=== PATIENT | female | born 1995 | race Caucasian/White ===

== ENCOUNTER 2017-04-11 15:08 | Emergency (ER) | payer OTHER ==
[~2017-04-11] VITALS: Ht 172.7 cm; Wt 93.0 kg
[2017-04-11 15:10] VITALS: BP 131/83
--- NOTE | 2017-04-11 15:26 | ED SKIN/ALLERGY COMPLAINT ---
History of Present Illness General Chief Complaint: Skin Rash/ Abcess Stated Complaint: ?VAGINAL ABCESS Source: patient, family, old records Exam Limitations: no limitations Vital Signs & Intake/Output Vital Signs & Intake/Output Vital Signs Date Time Temp Pulse Resp B/P B/P Pulse O2 O2 Flow FiO2 Mean Ox Delivery Rate 04/11 1611 Room Air Room Air 04/11 1510 99.0 104 20 131/83 100 Room Air Allergies Coded Allergies: No Known Allergies (04/11/17) Reconcile Medications Amoxicillin 500 MG TABLET 1 TAB PO TID ABSCESS Butalb/Acetaminophen/Caffeine (Fioricet 50-300-40 MG Capsule) 50 MG-300 MG-40 MG CAPSULE 1 TAB PO Q6HR PRN HEADACHE Sulfamethoxazole/Trimethoprim (Bactrim Ds Tablet) 800 MG-160 MG TABLET 1 TAB PO BID ABSCESS Triage Note: PT TO ED C/O VAGINAL ABSCESS. NOTICED YESTERDAY, WORSE TODAY. STATES ALMOST SIZE OF GOLFBALL. Triage Nurses Notes Reviewed? yes Onset: Abrupt Duration: day(s): (2), constant Timing: recent history Severity: moderate Severity Numbers: 6 Location: genitalia Possible Factors: no cause identified No Modifying Factors: none Associated Symptoms: MIGRAINE HEADACHE : No Patient currently breastfeeds: No HPI: 21-year-old female presents with family for evaluation complaining of a 2 day history of a progressively worsening painful moderate aching nonradiating lump to her vagina. She denies history of similar symptoms in the past. She denies any urinary complaints no dysuria urgency frequency hematuria. Her last menstrual cycle was March 30 and normal per the patient. She denies any abnormal bleeding or discharge since the symptoms began. She states that the pain has caused her to have a migraine headache, she is not taken anything for it. No fever no chills abdominal pain nausea vomiting or diarrhea. she denies chance of (DOMINGA RODRIGUEZ) Past History Travel History Traveled to [place] past 21 day No Medical History Any Pertinent Medical History? none Surgical History Surgical History: none Psychosocial History What is your primary language Kazakh Tobacco Use: Never used ETOH Use: denies use Illicit Drug Use: denies illicit drug use Family History Hx Contributory? No (DOMINGA RODRIGUEZ) Review of Systems Review of Systems Constitutional: Reports: no symptoms, see HPI. All Other Systems: Reviewed and Negative Comments Review of systems: See HPI, All other systems negative. Constitutional, no chills no fever, no malaise HEENT: no sore throat no congestion, no ear pain Cardiovascular: No chest pain , no palpitation Skin: see hpi Respiratory: No dyspnea no cough no sputum no hemoptysis GI: No nausea no vomiting, no diarrhea : No dysuria No hematuria, no frequency, no discharge Muscle skeletal: No joint pain, no back pain, no neck pain, Neurologic: headache Psych: No stress no depression,. Heme/endocrine: No bruising no bleeding Immunology: No lymphadenopathy (DOMINGA RODRIGUEZ) Physical Exam Physical Exam General Appearance: well developed/nourished, alert, awake Comments: Well-developed well-nourished patient in no apparent distress. HEENT: Atraumatic, extraocular motion intact Neck: Supple, FROM Back: FROM Respiratory: No respiratory distress. Patient speaking in full complete sentences. Breath sounds clear to auscultation bilaterally: NO W/R/R Female : Left lower Bartholin's gland abscess mild erythema indurated no fluctuants no discharge elicited NNo lesions/discharge or bleeding. Extremities: full range of motion Neuro: awake, alert, and oriented to person, place and time. There were no obvious focal neurologic abnormalities. Skin: Warm & dry;No appreciable rash on exposed skin Psych: Mood affect normal, normal memory normal judgment. (DOMINGA RODRIGUEZ) Progress Differential Diagnosis: abscess/cellulitis, shingles, BARTHOLIN GLAND ABSCESS, HERPES, FOLLICULITIS Plan of Care: Orders Procedure Date/time Status URINE 04/11 1543 Complete URINALYSIS 04/11 1543 Complete Laboratory Tests 04/11/17 1545: Urine Color YEL, Urine Clarity CLEAR, Urine pH 6.0, Ur Specific [place] 1.015, Urine Protein NEG, Urine Ketones NEG, Urine Nitrite NEG, Urine Bilirubin NEG, Urine Urobilinogen 0.2, Ur Leukocyte Esterase NEG, Ur Microscopic EXAM NOT REQUIRED, Urine Hemoglobin NEG, Urine Glucose NEG, Urine Test NEGATIVE Discussed with the patient physical exam I discussed with her do not believe there is anything to warrant incision and drainage at this time however patient requires antibiotics, espon salt baths, f/u with [employer] or return in 48-72 hrs for wound check. I answered all her questions they feel comfortable with this plan cleared for discharge (DOMINGA RODRIGUEZ) Departure Departure Time of Disposition: 1555 Disposition: HOME OR SELF CARE Condition: Stable Clinical Impression Primary Impression: Bartholin's gland abscess Secondary Impressions: Migraine Referrals: GELA FLORES,ALEXANDRO HUYNH (PCP/Family) Additional Instructions: follow up with your [employer], return in 2-3 days for wound check. amoxicllin, bactrim as directed. fioricet for your headache. ibuprofen 800mg every 8 hours. epson salt baths as discussed. As discussed you have a developing abscess, that does not appear ready to be lanced today. Return immediately at anytime sooner prior if your symtpoms worsen : worsening pain, fever, chills, discharge or any other concerns. these prescriptions were sent to [facility] Departure Forms: Customer Survey General Discharge Information Prescriptions: Current Visit Scripts Butalb/Acetaminophen/Caffeine (Fioricet 50-300-40 MG Capsule) 1 TAB PO Q6HR PRN HEADACHE #12 TAB Amoxicillin 1 TAB PO TID #21 TAB Sulfamethoxazole/Trimethoprim (Bactrim Ds Tablet) 1 TAB PO BID #14 TAB (DOMINGA RODRIGUEZ) PA/[employer]BR[employer] DERIVATIVES TRADER Co-Sign Statement Statement: ED Attending supervision documentation- [] I saw and evaluated the patient. I have also reviewed all the pertinent lab results and diagnostic results. I agree with the findings and the plan of care as documented in the PA's/HYBRID DERIVATIVES TRADER's documentation. [X] I have reviewed the ED Record and agree with the PA's/HYBRID DERIVATIVES TRADER's documentation. [] Additions or exceptions (if any) to the PAs/HYBRID DERIVATIVES TRADER's note and plan are summarized below: [] (TOM FLORES,ALFRED Conner)
[2017-04-11] MEDS ORDERED: FIORICET 50-301 EACH PO (16:04)
[2017-04-11] MEDS ORDERED: AMOXICILLIN500 M3 PO (16:04)
[2017-04-11] MEDS ORDERED: BACTRIM DS TAB1 EACH PO (16:04)
== END 2017-04-11 16:14 ==
LOC: ERH 15:08
DX: N75.8 Other diseases of Bartholin's gland (principal); G43.909 Migraine, unspecified, not intractable, without status migrainosus
CPT/HCPCS: 81003; 81025

== ENCOUNTER → 2017-04-15 | Day surgery (SDC) | payer OTHER ==
[~2017-04-15] VITALS: Ht 172.7 cm; Wt 95.3 kg
[~2017-04-15] MED LIST: AMOXICILLIN500 M3 PO; BACTRIM DS TAB1 EACH PO; FIORICET 50-301 EACH PO
--- NOTE | 2017-04-20 11:22 | Operative Report ---
Operative/Inv Procedure Report Surgery Date: 04/15/17 Name of Procedure: Excision of left vulvar cyst Pre-Operative Diagnosis: Left vulvar cyst Post-Operative Diagnosis: Same Estimated Blood Loss: scant Surgeon/Reporting Developer: LUCIANA BUCKLEY MD Anesthesia: moderate sedation Operative/Procedure Note Note: The patient was brought to the operating room and placed on the OR table in dorsal supine position. She was given adequate anesthesia and repositioned into dorsal lithotomy. She was prepped and draped in the usual sterile fashion. Examination revealed a 4 cm left labial cyst, not a Bartholin cyst. This was injected with 1% lidocaine with epinephrine. Stab incisions scalpel. To pathology. The cyst wall was opened and sutured to the vulvar skin with 3-0 Polysorb. The cyst was flushed using normal irrigation. Hemostasis was then the procedure. The patient was awakened and sent to recovery in good condition. All needle, sponge, and instrument counts were correct procedure 2.
== END ==
LOC: STS 07:00
DX: N90.7 Vulvar cyst (principal)
CPT/HCPCS: 87070; 87075; 87205; 81025; J0690; J2250